=== PATIENT | male | born 1970 | race Caucasian/White ===

== ENCOUNTER → 2024-01-15 13:01 | Outpatient (REF) | payer BC, SELFPAY | LOC: RAD 13:01 | PROVIDERS: ATTENDING PHYSICIAN Nurse Practitioner Adult Health | DX: M25.562 Pain in left knee (principal) | CPT/HCPCS: 73564 ==

== ENCOUNTER 2025-01-24 21:30 | Inpatient (IN) | payer OTHER, SELFPAY ==
[2025-01-24] VITALS (45 sets, daily range): BP systolic 76–145; BP diastolic 52–106; BMI 25.8
[2025-01-24] MEDS: NARCAN 0.8 MG IV (18:49)
--- NOTE | 2025-01-24 18:49 | PTCARENOTE ---
Narcan 0.8mg IV given. Pt remains unresponsive. Will continue to monitor.
[2025-01-24] MEDS: AMIDATE 20 MG IV ×2 (18:52→21:25)
[2025-01-24] MEDS: ROCURONIUM 60 MG IV (18:52)
--- NOTE | 2025-01-24 18:52 | PTCARENOTE ---
Pt intubed by Giovani. Respiratory and several RN's bedside. Will continue to monitor.
--- NOTE | 2025-01-24 19:00 | PTCARENOTE ---
Tick found on chest hair in CT Scan. Tick was not embedded. made aware. Tick discarded of. Will continue to monitor.
[2025-01-24 19:05] LABS: % Basophils 0.4 % (0-2); % Eosinophils 3.1 % (0-6); % Immature Granulocytes 0.2 % (0-0.5); % Lymphocytes 34.5 % (20.5-51.1); % Monocytes 6.7 % (1.7-9.3); % Neutrophils 55.1 % (42.2-75.2); Absolute Eosinophils 0.2 10^3/uL (0-0.7); Absolute Lymphocytes 1.9 10^3/uL (1.2-3.4); Absolute Monocytes 0.4 10^3/uL (0.1-0.6); Absolute Neutrophils 3.1 10^3/uL (1.4-6.5); Hematocrit 39.5 % (39.0-52.0); Hemoglobin 13.4 g/dL (13.0-18.0); Mean Corp Hgb Conc. 33.9 g/dL (33.0-37.0); Mean Corpuscular Hgb 32.4 pg (27.0-31.0); Mean Corpuscular Volume 95.6 fL (80.0-94.0); Mean Platelet Volume 10.3 fL (7.4-10.4); Nucleated Red Blood Cells % 0 % (-); Platelet Count 172 10^3/uL (130-400); Red Blood Cell Count 4.13 10^6/uL (4.70-6.10); Red Cell Dist. Width 11.5 % (11.5-14.5); White Blood Cell Count 5.5 10^3/uL (4.8-10.8)
[2025-01-24 19:18] LABS: Lactic Acid 1.8 mmol/L (0.7-2.0)
[2025-01-24 19:19] LABS: ALT (SGPT) 109 U/L (0-50); AST (SGOT) 170 U/L (17-59); Acetaminophen < 10 ug/ml (10-30); Albumin 3.9 g/dl (3.5-5.0); Alcohol 188 mg/dl; Alkaline Phosphatase 52 U/L (38-126); Blood Urea Nitrogen 10 mg/dl (9-20); Calcium 8.9 mg/dl (8.4-10.2); Carbon Dioxide 30 mmol/L (22-30); Chloride 101 mmol/L (98-107); Glucose 106 mg/dl (70-99); Potassium 4.5 mmol/L (3.5-5.1); Salicylate < 1.0 mg/dl (2.0-20.0); Sodium 139 mmol/L (135-145); Total Bilirubin 0.4 mg/dl (0.2-1.3); Total Protein 6.4 g/dl (6.3-8.2); eGFR > 60.00
[2025-01-24 19:29] LABS: Troponin I < 0.012 ng/ml
--- NOTE | 2025-01-24 19:40 | ED.GENMED ---
History of Present Illness
General
Chief Complaint: Unresponsive
Source: family (Mother) and ambulance crew
Time Seen by Provider: 01/24/25 18:43
History of Present Illness
History of Present Illness:
54-year-old male found unresponsive in the bathroom. Was seen about an hour earlier at 530 and was fine. 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 Mom did note he seemed somewhat unusually sleepy yesterday but did go to work. No known overdose at home.
Patient is on buprenorphine 1/2 tablet 3 times a day. Last filled January 03. Other medications were not gone. No medications in the bathroom.
Past History
Past History
ED Past Medical History: Other (History of opioid use)
Social History
Living: with family
Review of Systems
Review of Systems
Unable to obtain full review of systems at this time due to: due to acuity
All Other Systems: Not applicable
Phy Exam
Physical Exam
Physical Exam:
GENERAL: Unresponsive. Collar in place. Superficial abrasion to the anterior neck consistent with shaving
EYE: Pinpoint pupils bilaterally
NECK: Collar in place
ENT: Pharynx without erythema
CARDIAC: Regular rate and rhythm without any obvious murmurs.
LUNGS: Shallow breathing. No gag reflex
ABDOMEN: Soft, without focal tenderness or distention
NEUROLOGICAL: Totally unresponsive. No withdrawal to pain.
SKIN: Warm and dry, no rash or lesion, no discoloration, skin intact.
MUSCULOSKELETAL: No edema,no deformity.Good color
Course
Orders/Labs/Results
Orders:
Orders
01/24/25 Dinner
NPO
Allow oral meds: No
Allow clear liquids: No
01/24/25 18:38
Electrocardiogram (*1) Urgent
Reason for Study: Chest Pain
01/24/25 18:39
EKG- Treatment ONCE
01/24/25 18:41
Propofol 1,000,000 Mcg/100 ml [Diprivan] 1,000,000 mcg in 100 ml .ROUTE .STK-MED
01/24/25 18:43
Cardiac Monitoring- Treatment ONCE
Acetaminophen Urgent
Alcohol Urgent
Complete Blood Count/With Diff Urgent
Comprehensive Metabolic Panel Urgent
Lactic Acid Urgent
Salicylate Urgent
Troponin I Urgent
CXR Port [CR Chest Portable - 1 View] Urgent
Comment:
Reason For Exam: intubated
Reason Study Needs to be Portable: Patient Unstable
01/24/25 18:44
CT Cervical Spine W/o Iv Contr Urgent
Comment:
Reason For Exam: unresp
CT Head W/o Iv Contrast Urgent
Comment:
Reason For Exam: unresp
01/24/25 18:45
Naloxone [Narcan] 0.8 mg .ROUTE .STK-MED ONE
01/24/25 18:49
Naloxone [Narcan] 0.8 mg IV NOW STA
01/24/25 18:52
Etomidate [Amidate] 20 mg IV NOW STA
01/24/25 18:55
Rocuronium Altair [Rocuronium] 60 mg IV NOW STA
01/24/25 19:11
CT Head & Neck Angio W/wo IV Urgent
Comment:
Reason For Exam: Unresponsive
01/24/25 19:41
ABG [Arterial Blood Gas] Urgent
%Oxygen/Room Air: 50%
01/24/25 19:42
Fentanyl, Urine Urgent
Urinalysis Reflex To Culture Urgent
Date Specimen was Collected: 01/24/25
Time Specimen was Collected: 19:40
Urine Drug Abuse Screen Urgent
Date Specimen was Collected: 01/24/25
Time Specimen was Collected: 19:40
Urine Microscopic Reflex Cult Urgent
Urine Culture Urgent
SIMI Source: U
Specimen Description:
Date Specimen was Collected: 01/24/25
Time Specimen was Collected: 19:40
01/24/25 19:44
Straight cath- Treatment ONCE
Straight cath- Treatment ONCE
01/24/25 20:05
Triglycerides Routine
Comment: baseline levels with propofol infusion
Propofol 1,000,000 Mcg/100 ml [Diprivan] 1,000,000 mcg in 100 ml IV NOW
Indication:: Light Sedation
Begin Infusion:: Now
Goal:: RASS 0 to -2
Maximum dose in mcg/kg/min:: 50
Initial dose based on RASS:: Yes
If RASS is:: +1 or pt hemodynamically unstable (SBP < 90mmHg), initiate at 10 mcg/kg/min
If RASS is:: +2, initiate at 20 mcg/kg/min
If RASS is:: greater than or equal to +3, initiate at 30 mcg/kg/min
Titration Instructions:: Titrate by 5-10 mcg/kg/min every 5 minutes until RASS 0 to -2 achieved.
Taper Instructions:: If RASS is at or below goal for 4 consecutive hours decrease infusion by
Taper Instructions:: 5-10 mcg/kg/min every 2 hours to off.
Over-sedation Instructions:: If CPOT 0-2 (at goal) AND RASS -3 to -5 (below goal) decrease sedative by
Over-sedation Instructions:: 50% first. If pain score remains at goal and RASS remains below goal in
Over-sedation Instructions:: 1 hour, decrease opioid infusion by 50%.
Notify provider:: immediately if patient exhibits signs/symptoms of propofol-related
Notify provider:: infusion syndrome.
Additional Instructions:: Patient MUST be mechanically ventilated and MUST receive analgesia.
01/24/25 20:24
Admit/Transfer Patient As Directed
Co-Sign Provider:
Level of Care: Inpatient admission
Assign to:: ICU
Physician / Group: latonya
Diagnosis: drug overdose
Reason for Hospitalization: drug overdose
Expected length of stay greater than two midnights?: Yes
ELOS- Estimated Length of Stay in days: 2
I certify the patient meets the requirements for IP care: Yes
PRN Pain Medication Management As Directed
May give lesser potent ordered pain med per pt: Yes
preference::
Protocol:: Medication orders for pain may be administered in a
manner that supports deferring to patient preference
when the pt is:
- Requesting an ordered lesser potent pain medication.
Least to most potent pain medications are defined
as: acetaminophen < NSAID < tramadol < opioids
(morphine, oxycodone, hydromorphone).
- Requesting a lesser dose of the same medication IF
ORDERED.
- Requesting a less intrusive route of administration
if both routes are prescribed by the provider (PO <
IV).
01/24/25 20:25
Code Status As Directed
Resuscitation Status: Full Code
01/24/25 20:30
NEUROLOGY CONSULT Routine
Consulting Provider: Rah Burgess
Was physician already notified: Yes
01/24/25 20:42
NORepinephrine 4 MG/250 ML [Levophed] 4 mg in 250 ml .ROUTE .STK-MED
01/24/25 20:53
Lorazepam [Ativan] 2 mg .ROUTE .STK-MED ONE
01/24/25 20:58
Lorazepam [Ativan] 2 mg IV NOW STA
01/24/25 20:59
CXR Port [CR Chest Portable - 1 View] Urgent
Comment:
Reason For Exam: Patient pulled tube
Reason Study Needs to be Portable: Unable to Transport
01/24/25 21:00
Propofol [Diprivan] 40 mg IV NOW STA
01/24/25 21:11
NORepinephrine 4 MG/250 ML [Levophed] 4 mg in 250 ml IV NOW
Initial dose in mcg/min, then titrate:: 2
Titrate to keep:: MAP > 65 mmHg
Titrate by mcg/min:: 1-2 mcg/min
Frequency of titrations (minutes):: 5
Maximum dose in ICU in mcg/min:: 30
Maximum dose in IMU in mcg/min:: 8
Maximum dose in IVU in mcg/min:: 4
Begin to taper infusion when:: Remained at goal for 4hrs
Taper by mcg/min:: 1-2 mcg/min
Frequency of taper (minutes) if patient maintains goal:: 30
Taper to off?: Yes
If infusion off & no longer maintaining goal:: Contact Provider
01/24/25 21:28
CXR Port [CR Chest Portable - 1 View] Stat
Comment:
Reason For Exam: Intubated
Reason Study Needs to be Portable: Patient Unstable
01/24/25 21:58
Oracle Database Consultant Consult Routine
Consulting Provider: Ric Ovalle
Was physician already notified: Yes
Lyme Progressive Routine
Activity As Directed
Activity Level: As Tolerated
Vital Signs As Directed
Frequency: Per unit guidelines
DX Deep Vein Thrombosis Video Routine
01/25/25 06:00
Complete Blood Count/With Diff IN AM
Comprehensive Metabolic Panel IN AM
01/25/25 08:00
Heparin 5,000 units SC Q12
Abnormal Lab Results
01/24/25 01/24/25 01/24/25
18:43 19:41 19:42
RBC 4.13 L 10^6/uL
(4.70-6.10)
MCV 95.6 H fL
(80.0-94.0)
MCH 32.4 H pg
(27.0-31.0)
pO2 143 H mmHg
(83-108)
ABG O2 Sat (Measured) 99.3 H %
(94-98)
Glucose 106 H mg/dl
(70-99)
AST 170 H U/L
(17-59)
ALT 109 H U/L
(0-50)
Leukocyte Esterase Rfl 1+ A
(Negative)
Salicylates < 1.0 L mg/dl
(2.0-20.0)
Ur Buprenorphine Positive H
(Negative)
Urine Fentanyl Screen Positive H
(Negative)
Acetaminophen < 10 L ug/ml
(10-30)
Ur Amphetamines Screen Positive H
(Negative)
U Benzodiazepines Scrn Positive H
(Negative)
Urine Cocaine Screen Positive H
(Negative)
U Marijuana (THC) Screen Positive H
(Negative)
01/24/25 18:43
01/24/25 18:43
Vital Signs
Initial and Last Documented VS:
Initial Vital Signs
Temp Pulse Resp BP Pulse Ox
98.1 F 75 21 103/69 100
01/24/25 18:40 01/24/25 18:40 01/24/25 18:40 01/24/25 18:40 01/24/25 18:40
Last Documented Vital Signs
Temp Pulse Resp BP Pulse Ox
98.1 F 65 14 106/80 100
01/24/25 18:40 01/24/25 19:50 01/24/25 19:50 01/24/25 19:50 01/24/25 19:50
Procedures
Intubations
Procedure completed by: Myself
Method of Intubation: glidescope
Tube size (cm): 8.0
Placement confirmed by: auscutation, CXR, capnography and direct visualization
Breath sounds after intubation: equal
Intubation complications: no complications
*Radiology
Radiology exam reviewed: preliminary read by ED provider (Chest x-ray with good placement) and radiology read reviewed (CT scans negative. Chest x-ray with good placement)
*Critical Care Note
Total Time (30-74mins, 75-104mins- exclusive of procedures): 70
Update Note
Update Note:
Patient is followed and rechecked multiple times. Multiple discussions with family. CT scans unremarkable. This points most likely to a opioid issue... However no obvious overdose in the bathroom and likely no obvious missing pills and less not
been taking the medication. Discussed with neurology. No further radiologic imaging at this time. Referred to hospitalist.
Also consider organophosphate poisoning however patient has no bronchospasm or bronchorrhea no defecation diaphoresis no vomiting no unusual lacrimation or salivation.
2129.... Patient apparently had woken suddenly and pulled his ET tube. He was rechecked afterwards and initially felt to be stable after increased sedation. However I noted that he was running slightly lower pulse oxes in the low 90s. And he had
some high pressures on the machine. We elected to check an end-tidal CO2 which did not register. I then visually looked and the ET tube had been displaced outside of his cords. Initially we observed to see how well he was breathing on his own and
whether he could stay extubated. He made some shallow effort but did not make significant effort. Therefore I felt he needed to be reintubated. He was reintubated without difficulty with an 8 oh tube. Confirmed with end-tidal CO2 and breath
sounds. Also will be confirmed with chest x-ray. Patient is pending ICU placement.
X-ray rechecked. Will be pulled back 1.5 cm. Good pulse ox is stable vital signs ongoing to the ICU.
ED Attending Note
-
Portions of this chart may have been created with voice recognition software.� Occasional wrong word or��sound alike� substitutions may have occurred due to the inherent limitations of voice recognition software.
Discharge Plan
Departure
Patient Disposition: Admit
Date of Disposition: 01/24/25
Time of Disposition: 19:40
Presentation/result/management discussed w/ accepting MD/DO: Hospitalist
Discharge Problem:
Unresponsive
Interventions
Interventions:
*Risk Screen - Suicide Last Done: 01/24/25 18:43
*General Assessment Last Done: 01/24/25 19:45
*Neglect/Abuse Screening Last Done: 01/24/25 18:43
*ED- Fall Risk Assessment Last Done: 01/24/25 19:43
*ED COVID-19 Vaccine History Last Done: 01/24/25 19:43
ED- Neurological Assessment Last Done: 01/24/25 18:43
--- NOTE | 2025-01-24 19:53 | PTCARENOTE ---
Giovani and Hospitalist bedside speaking with pt's Mother. Respiratory bedside obtaining ABG. Pt remains unresponsive and intubated. VSS. Will continue to monitor.
[2025-01-24 19:59] LABS: Urine Albumin Negative (Neg - Trace); Urine Bilirubin Negative (Negative); Urine Character Clear (Clear); Urine Color Yellow; Urine Glucose Negative (Negative); Urine Ketone Negative (Negative); Urine Leukocyte 1+ (Negative); Urine Nitrite Negative (Negative); Urine Occult Blood Negative (Negative); Urine Specific Gravity 1.015 (<1.030); Urine Urobilinogen Negative (Neg - 1+)
[2025-01-24 20:07] LABS: Amphetamines Positive (Negative); Barbiturates Negative (Negative); Benzodiazepines Positive (Negative); Buprenorphine Positive (Negative); Cocaine Positive (Negative)
[2025-01-24 20:08] LABS: B.E. -2.4 mmol/L; HCO3 23.2 mmol/L (21-28); O2 Saturation % 99.3 % (94-98); PCO2 42 mmHg (35-48); PO2 143 mmHg (83-108); pH 7.35 (7.35-7.45)
[2025-01-24 20:08] LABS: Methadone Negative (Negative); Methamphetamines Negative (Negative); Opiates Negative (Negative); Phencyclidine Negative (Negative)
[2025-01-24 20:09] LABS: Marijuana Positive (Negative); Tricyclic Antidepressants Negative (Negative)
[2025-01-24] MEDS: DIPRIVAN 100 IV (20:12)
[2025-01-24 20:18] LABS: Urine Red Blood Cell None Seen /HPF (0-2); Urine Squamous Cell 0-2 /LPF (Few)
--- NOTE | 2025-01-24 20:28 | HPS.HSE ---
Addendum entered and electronically signed by Macie Meyer MD 01/24/25 20:35:
Transaminitis secondary to Alcohol/drugs
-continue to monitor
Original Note:
Family Physician
-
Family Physician:
Chief Complaint
-
unresponsiveness
History of Present Illness
54-year-old male past medical history of hypertension, anxiety/depression, prior opiate use disorder on Subutex, on chronic Valium, presenting with unresponsiveness today.
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 History is obtained from her. She states that he was very lethargic and sleepy all day yesterday. He did not complain of any symptoms. Today he went to work as usual and came home around 5
PM. Mother was away for 15 minutes and patient went to the shower. She called to him and he was on the bathroom floor. He was breathing shallowly. EMS was called.
Patient is on buprenorphine half tablet 3 times a day which was last filled on January 03. He is also on Valium and Lexapro. There were no missing medications. Mother was not aware that patient would be drinking alcohol. He does not use any other
drugs.
Patient was found to have a unattached tic on his chest without any rash.
Medical History
Past Medical History
Past Medical History: Reports Other (hypertension, anxiety/depression, prior opiate use disorder on Subutex)
Past Surgical History: Reports None
Social History
Tobacco: Non-smoker
Alcohol: None
Drug: None
Family History
Family History: Not pertinent
Allergies / Home Medications
Allergies reflects when Allergies were last updated in [facility].
Home Medications with original date entered in [facility]
Allergy/Medication List:
Allergies
Allergy/AdvReac Type Severity Reaction Status Date / Time
bee venom protein (honey bee) Allergy Hives Verified 01/24/25 20:14
Review of Systems
-
History Source: Patient
A 12 point ROS was completed and negative except as noted: Yes
Constitutional: Reports No Symptoms
EENT: Reports No Symptoms
Respiratory: Reports No Symptoms
Cardiac: Reports No Symptoms
Abdomen/GI: Reports No Symptoms
: Reports No Symptoms
Musculoskeletal: Reports No Symptoms
Skin: Reports No Symptoms
Neurological: Reports No Symptoms
Endocrine: Reports No Symptoms
Hematologic/Lymphatic: Reports No Symptoms
Psych: Reports No Symptoms
Physical Exam
Vital Signs
Vital Signs
Temp Pulse Resp BP Pulse Ox
98.1 F 65 14 106/80 100
01/24/25 18:40 01/24/25 19:50 01/24/25 19:50 01/24/25 19:50 01/24/25 19:50
Physical Exam
General: Well Developed, Well Nourished and No Apparent Distress
HEENT: NormoCephalic, Moist mucous membranes and Atraumatic
Respiratory: Clear
Cardiac: S1/S2 and Regular Rhythm; No Murmur or Rub
GI: Soft, Non Tender, Non Distended and Normal Bowel Sounds; No Organomegaly
Rectal: Deferred by Provider
Musculoskeletal: No Clubbing, No Cyanosis and No Edema
Skin: No Rash
Neuro: Nonfocal/grossly intact
Laboratory Results
-
01/24/25 18:43
01/24/25 18:43
Laboratory Results
pH 7.35 (7.35-7.45) 01/24/25 19:41
pCO2 42 mmHg (35-48) 01/24/25 19:41
pO2 143 mmHg (83-108) H 01/24/25 19:41
HCO3 23.2 mmol/L (21-28) 01/24/25 19:41
Lactic Acid 1.8 mmol/L (0.7-2.0) 01/24/25 18:43
Total Bilirubin 0.4 mg/dl (0.2-1.3) 01/24/25 18:43
AST 170 U/L (17-59) H 01/24/25 18:43
ALT 109 U/L (0-50) H 01/24/25 18:43
Alkaline Phosphatase 52 U/L (38-126) 01/24/25 18:43
Troponin I < 0.012 ng/ml 01/24/25 18:43
Data Reviewed
-
Lab Data: Labs Reviewed by me
Old Records: Reviewed
Impression/Plan
-
IMPRESSION:
PLAN:
# Unresponsiveness likely anoxic brain injury from Subutex overdose with concurrent alcohol/benzodiazepine/marijuana/amphetamine/cocaine use
-Patient not hypoxemic
-Alcohol level of 188
-UDS positive for amphetamines, cocaine and marijuana in addition to expected buprenorphine and benzodiazepines
-Tylenol and salicylate level negative
-UDS negative
-CTA head and neck unremarkable
-Patient intubated in ER
-On propofol drip
-Supportive care
- Neurology consulted for prognostication
- Unlikely to be brainstem CVA
# Unattached tick on the body
- No rash
- Mother requesting Lyme testing
Essential hypertension
Anxiety/depression
- Patient normally on Lexapro, Valium
Full code
DVT prophylaxis�heparin
N.p.o.
[2025-01-24 20:31] LABS: Fentanyl, Urine Positive (Negative)
[2025-01-24] MEDS: DIPRIVAN 40 MG IV (20:40)
--- NOTE | 2025-01-24 20:51 | W.PN.UPDATE ---
Addendum entered and electronically signed by Macie Meyer MD 01/24/25 21:32:
Patient became hypoxic to 90% and end Tidal Co2 not registering suggested that he pulled out tube so he was reintubated.
Original Note:
Update Note
Progress Note Update
Patient became awake and tried getting out of the bed. Propofol bolus and drip increased. IV fluids and Levophed being givendue to hypotension from increased Propofol.
[2025-01-24] MEDS: ATIVAN 2 MG IV (20:59)
[2025-01-24] MEDS: LEVOPHED 250 IV (21:17)
--- NOTE | 2025-01-24 21:50 | PTCARENOTE ---
Bed side CXR done to check placement of ET tube after pt attempted to extubate himself. Tube showed to be misplaced. Pt reintubated at bedside w/ Giovani, Respiratory and 2 RN's. Etomidate 20mg IV and Rocuronium 60mg IV given through Right AC.
Post CXR shows correct placement of ET tube. ICU updated and pt sent to floor with 2 RN's and 1 Respiratory Therapist. Will continue to monitor.
[2025-01-24 22:24] LABS: Glucose - Point of Care 94 mg/dl (70-99)
[2025-01-24] MEDS: NSS 1000 IV ×2 (23:05→23:14)
[2025-01-24] MEDS: SUBLIMAZE 100 MCG IV (23:14)
[2025-01-24] MEDS: SUBLIMAZE 100 IV (23:15)
[2025-01-25] VITALS (46 sets, daily range): BP systolic 80–145; BP diastolic 50–92; PULSE 49; BMI 26.0
--- NOTE | 2025-01-25 | PTCARENOTE ---
Pt arrived to ICU room 3369 from ER at 2154. Pt intubated, #8.0 ETT 26cm at lip, vent settings: AC 14/450/50/5. Received pt on Propofol at 35mcg/kg/min and Levophed at 2mcg/min. Pt initially unresponsive to any stimuli, RASS -5, sinus miguelito on
monitor with HR in 40s, going down as low as 38, but mainly staying in 50s-60s. CHG cloth bath done upon arrival. IVF bolus ordered/administered followed by continuous fluids. Fentanyl drip initiated, at which point Propofol titrated down. See med
titration flowsheets for all details on all med rates/titrations. Physical assessment as documented in nursing shift assessment flowsheet. Unable to complete most of admission database as pt is unable to answer any questions.
[2025-01-25] MEDS: SUBLIMAZE 50 MCG IV ×8 (00:16→13:40)
[2025-01-25 00:31] LABS: Triglycerides 140 mg/dl (10-149)
[2025-01-25] MEDS: DIPRIVAN 100 IV ×5 (00:42→16:08)
[2025-01-25] MEDS: ATIVAN 2 MG IV ×2 (01:41→05:49)
[2025-01-25 04:21] LABS: % Basophils 0.3 % (0-2); % Eosinophils 1.9 % (0-6); % Immature Granulocytes 0.3 % (0-0.5); % Lymphocytes 26.1 % (20.5-51.1); % Monocytes 8.1 % (1.7-9.3); % Neutrophils 63.3 % (42.2-75.2); Absolute Eosinophils 0.1 10^3/uL (0-0.7); Absolute Monocytes 0.6 10^3/uL (0.1-0.6); Absolute Neutrophils 4.8 10^3/uL (1.4-6.5); Hemoglobin 11.6 g/dL (13.0-18.0); Mean Corp Hgb Conc. 33.1 g/dL (33.0-37.0); Mean Corpuscular Volume 96.7 fL (80.0-94.0); Mean Platelet Volume 10.3 fL (7.4-10.4); Nucleated Red Blood Cells % 0 % (-); Platelet Count 151 10^3/uL (130-400); Red Blood Cell Count 3.62 10^6/uL (4.70-6.10); Red Cell Dist. Width 11.8 % (11.5-14.5); White Blood Cell Count 7.5 10^3/uL (4.8-10.8)
[2025-01-25 04:32] LABS: INR 0.99; PT 13.4 Sec (11.4-14.6)
[2025-01-25 04:33] LABS: APTT 26.7 Sec (23.4-35.0)
[2025-01-25 04:42] LABS: ALT (SGPT) 85 U/L (0-50); AST (SGOT) 105 U/L (17-59); Albumin 3.1 g/dl (3.5-5.0); Alkaline Phosphatase 46 U/L (38-126); Blood Urea Nitrogen 10 mg/dl (9-20); Calcium 7.9 mg/dl (8.4-10.2); Carbon Dioxide 24 mmol/L (22-30); Chloride 110 mmol/L (98-107); Direct Bilirubin 0.2 mg/dl (0.0-0.4); Estimated Creatinine Clearance 123 ml/min; Glucose 84 mg/dl (70-99); Magnesium 1.7 mg/dl (1.6-2.3); Phosphorus 3.7 mg/dl (2.5-4.5); Potassium 4.3 mmol/L (3.5-5.1); Sodium 140 mmol/L (135-145); Total Bilirubin 0.3 mg/dl (0.2-1.3); Total Protein 5.2 g/dl (6.3-8.2); eGFR > 60.00
--- NOTE | 2025-01-25 04:43 | PTCARENOTE ---
Addendum entered by Teri Fierro RN 01/25/25 04:48:
Assessment otherwise unchanged.
Original Note:
Pt now awakens easily, becomes easily agitated, attempting to sit up, pulling at restraints in an attempt to reach tube. Pt able to nod/shake head appropriately, able to follow simple commands. Can occasionally be redirected and calmed down but not
always. Pt has required increased sedation doses, now on Propofol at 50mcg/kg/min and Fentanyl at 150mcg/hr, has required multiple Fentanyl bolus doses as well as PRN Ativan, see EMAR for details on med administration. By 0400 pt had not urinated,
bladder scan done and showed 567mL, straight cathed for 550mL. Pt remains on Levophed, now at 1mcg/min--pt's BP will go up to 130s with MAPs in 90s-100s on 2mcg/min but when turned off pt does not maintain MAP goal. Currently SB in high 50s on
monitor, SpO2 100% on same vent settings. AM labs drawn/pending.
[2025-01-25] MEDS: SUBLIMAZE 100 IV ×4 (07:27→22:36)
[2025-01-25] MEDS: HEPARIN 5000 UNITS SC ×2 (07:50→16:09)
[2025-01-25] MEDS: NSS 1000 IV ×3 (07:54→23:25)
--- NOTE | 2025-01-25 08:19 | CON.INTV ---
Consultation
Consultation Request
Date/Time Consultation Requested: 01/24/20252157
Date/Time Consultation Performed: 01/25/2025815
Requesting Provider: Betsy Calvillo
Performing Provider: Dr. Ovalle
Reason for Consultation: Drug overdose
Medical History
-
Chief Complaint: Found unresponsive
History of Present Illness:
54-year-old male tobacco smoker with a past medical history of opioid use disorder, anxiety, hypertension, C5/6 disc herniation and cervical spine DDD presented from home due to unresponsiveness. Patient last known normal at 5:30 PM on 01/24/2025.
Patient found on the bathroom floor unresponsive. 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 Angel May). The patient went to work and came home around 5 PM. The
mother was away for 15 minutes and patient went to the shower. She then found him on the bathroom floor after he did not respond to her. He was breathing shallowly. EMS called. Patient is prescribed Subutex half a tablet 3 times a day, last
filled on January 03. Also on Valium and Lexapro. There were no other missing medications. Mother was unaware that he had been drinking alcohol. He also was found with an unattached tick on his chest without a rash. Unclear if the tick was
engorged or not. In the ER he was afebrile to 98.1 �F, pulse rate 75, respiratory rate 21, BP 130/69 and saturating 100% on nonrebreather. Patient being intubated due to continued unresponsiveness. After patient intubated, he was later found to
be hypoxic with end-tidal CO2 not registering and he had to be reintubated. Pertinent labs show AST 170, ALT 109, negative troponin x 1, urinalysis with +1 leukocyte esterase, and UDS positive for fentanyl, buprenorphine, cocaine, benzodiazepines
and marijuana. Patient's alcohol level was 188. Urine culture was sent. CXR showed no evidence of pneumonia or vascular congestion, and CT head + cervical spine showed no acute intracranial abnormality, and no evidence of cervical spine fracture.
CTA head/neck showed widely patent bilateral carotid arterial system with no LVO or dissection bilaterally. Patient was started on propofol and Levophed and transferred to the ICU for further care. State Tested Nursing Assistant services consulted for additional
management/recommendations.
When I saw the patient's morning, he was intubated on AC/CMV at 14/450/5/50% with PIP 15 cm water, VT 440 and breathing at 14 breaths/min. End-tidal CO2: 31, heart rate 61, SpO2 98%. BP 107/65. Patient's mother, Jamilah, present at bedside and all
questions were answered. Patient currently sedated on fentanyl drip at 225 mcg/hr, propofol at 50 mcg/kg/min and Precedex 0.4 mcg/kg/hour.
PMHx: Anxiety, lower back pain, hypertension, opioid use disorder now on Subutex, C5/6 disc herniation, DDD and facet arthrosis of C-spine, chronic Valium, hypertension
PSHx: Noncontributory
Past Medical History
Past Medical History: Other (Above as per HPI)
Past Surgical History: Other (Above as per HPI)
Social History
Tobacco: Smoker
Alcohol: Occasional
Drug: None
Family History
Family History: CAD (Father), Cancer (Father (unknown type)), Hypertension (Father) and Other (Follow up: Aortic valve replacement)
Allergies / Home Medications
Allergies
Allergy/AdvReac Type Severity Reaction Status Date / Time
bee venom protein (honey bee) Allergy Hives Verified 01/24/25 20:14
Review of Systems
-
Unable to Obtain full review of systems at this time due to: Patient Intubation
Vitals / Labs / Diagnostic Testing
Vital Signs
Temp Pulse Resp BP Pulse Ox
98.5 F 65 19 97/79 100
01/25/25 07:00 01/25/25 07:30 01/25/25 07:30 01/25/25 07:30 01/25/25 08:00
Lab Data
01/25/25 03:55
01/25/25 03:55
Laboratory Results
01/24/25 01/25/25
19:41 03:55
PT 13.4
INR 0.99
APTT 26.7
pH 7.35
pCO2 42
pO2 143 H
HCO3 23.2
O2 Delivery Level
Diagnostic Testing:
Physical Exam
-
HEENT: Normocephalic, Anicteric, Other (C-collar in place) and Other (ETT in place)
Cardiovascular: S1/S2 and Peripheral Edema (negative)
Respiratory: Wheeze (negative), Rales (negative), Rhonchi (negative), Non-Labored Respirations and Other (Mechanical breath sounds heard bilaterally)
GI: Soft, Non Distended, Non Tender and Normal Bowel Sounds
Neurology: Tremors (negative) and Other (Sedated; pupils +2 bilaterally and sluggish)
Skin: Warm and Dry
General: Respiratory Distress (negative), Comfortable, Fever (negative), Chills (negative) and Sweats (negative)
Assessment
-
Assessment: 54-year-old male tobacco smoker with a past medical history of opioid use disorder, anxiety, hypertension, C5/6 disc herniation and cervical spine DDD presented from home due to unresponsiveness. Patient last known normal at 5:30 PM on
01/24/2025. Patient found on the bathroom floor unresponsive. 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 Angel May). The patient went to work and came home around
5 PM. The mother was away for 15 minutes and patient went to the shower. She then found him on the bathroom floor after he did not respond to her. He was breathing shallowly. EMS called. Patient is prescribed Subutex half a tablet 3 times a
day, last filled on January 03. Also on Valium and Lexapro. There were no other missing medications. Mother was unaware that he had been drinking alcohol. He also was found with an unattached tick on his chest without a rash. Unclear if the tick
was engorged or not. In the ER he was afebrile to 98.1 �F, pulse rate 75, respiratory rate 21, BP 130/69 and saturating 100% on nonrebreather. Patient being intubated due to continued unresponsiveness. After patient intubated, he was later found
to be hypoxic with end-tidal CO2 not registering and he had to be reintubated. Pertinent labs show AST 170, ALT 109, negative troponin x 1, urinalysis with +1 leukocyte esterase, and UDS positive for fentanyl, buprenorphine, cocaine,
benzodiazepines and marijuana. Patient's alcohol level was 188. Urine culture was sent. CXR showed no evidence of pneumonia or vascular congestion, and CT head + cervical spine showed no acute intracranial abnormality, and no evidence of cervical
spine fracture. CTA head/neck showed widely patent bilateral carotid arterial system with no LVO or dissection bilaterally. Patient was started on propofol and Levophed and transferred to the ICU for further care. State Tested Nursing Assistant services consulted
for additional management/recommendations.
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
Impression:
#Acute respiratory failure with hypoxia now on mechanical ventilation (intubated 02/20/2025)
#Polysubstance abuse with drug overdose of fentanyl
#Acute anemia (mild)
#Alcohol intoxication
#History of hypertension
#History of anxiety
#History of C5/6 disc herniation
#Tobacco use disorder
Plan:
- Patient was found unresponsive by patient's mother, and UDS positive for fentanyl, cocaine, THC and benzodiazepines. He is prescribed Valium, Subutex and Lexapro
- No other of his home medications were missing
- He is currently intubated due to unresponsiveness with need for airway protection
- Continue mechanical ventilation with daily SAT/SBT if clinically appropriate
- Titrate FiO2 + PEEP to maintain SpO2 >90-94%
- Frequent oropharyngeal + deep ETT suctioning as needed
- Aspiration precautions
- prn nebulized bronchodilators - not currently bronchospastic
- He had used fentanyl with unclear duration of this use, and given the adulterants of xylazine + medetomidine, he is currently sedated with fentanyl drip, propofol and Precedex
- Continue to wean down sedation as tolerated
- May need ketamine to help wean off sedation
- Given that his alcohol level was elevated, he is at risk of a withdrawal seizure
- Start thiamine and folate for now
- Once he is extubated, would start MSAS at that time
- For now continue with propofol drip which should protect him from a seizure, continue with prn Ativan; may benefit from starting phenobarbital protocol
- Maintain MAP>65
- Weaned off vasopressors this morning; resume if needed to maintain MAP as above
- NS 0.9% @ 125cc/hr
- If patient spikes a fever then would start empiric antibiotics at that time given his risk for aspiration during his unresponsive event
- For now, monitor off antibiotics and trend WBC and monitor for fevers
- Nicotine patch if he is still smoking (unable to get a history at the moment)
- Replete electrolytes with K>4, Mg>2
- Maintain euglycemia with goal BG 140-180; check A1C
- Trend H/H and transfuse if needed to keep Hb>7g/dL; keep plt>20k, unless there is concern for bleeding then keep plt>50k
- DVT ppx: HSQ
Continue ICU level of care for this critically ill patient.
Critical care statement: A total of 37 minutes of critical care time was provided for this patient today. This includes management of unstable vital signs, evaluation of the patient at bedside, reviewing the patient's pertinent medical records
including radiographs, microbiology, laboratory evaluations, and discussion with primary team, consultants, pharmacy, nutrition, physical therapy, case management, charge nurse, critical care nursing, and respiratory therapy.
--- NOTE | 2025-01-25 08:45 | PTCARENOTE ---
Assumed care of pt at 0715 following shift report. Pt received intubated w/ #8 ETT to center to ordered vent settings. Fentanyl gtt infusing at 175mcg/hr, Propofol at 50 mcg/kg/min, Levophed at 1mcg/min and NSS at 125ml/hr. Bilateral soft wrist
restraints in use to protect lines/tubing. Pt restless/agitated - pulling on restraints, reaching for ETT, swinging legs. Pt intermittently following commands and attempting to communicate by mouthing words/gestures/head shake or nod. Bilateral
clinical transplant coordinator equal and strong. C-Collar remains in place. Fentanyl boluses given as documented in NOV. TT to Dr Ovalle updating him on pt's agitation. Telephone order to begin Precedex gtt received. Physical assessment completed as documented. Pt
turned/repositioned, comfort care and hygiene provided. Call tran w/in pt reach. Bed exit alarm in use and safe environment maintained.
[2025-01-25] MEDS: PRECEDEX 100 IV ×2 (09:03→17:36)
--- NOTE | 2025-01-25 09:09 | PTCARENOTE ---
Pt restlessly moving legs and pulling on restraints. Shakes head 'no' when asked if having any pain. Precedex gtt started per order.
--- NOTE | 2025-01-25 10:40 | RESPNOTE ---
ETT withdrawn 3 cms from 26 to 23 cms @ the lips as per the physician order. ETT is secured and another chest X-ray will be taken.
--- NOTE | 2025-01-25 11:30 | PTCARENOTE ---
Pt's mother at bedside. Updated on pt's present condition, plan of care. Questions answered and emotional support provided. Pt continues to rest quietly w/ intermittent restlessness/agitation. Precedex and Propofol gtts titrated as documented. Pt
straight cathed following bladder scan due to no urine output. Resp Therapy in room and at 1035 pulled back ETT 3cm per Dr Ovalle, repeat CXR obtained and results of ETT placement TT to Dr Ovalle w/o additional orders received.
--- NOTE | 2025-01-25 11:30 | W.PN.HOSP.TC ---
Today's Communication/Plan
-
continue ventilatory support
Assessment / Plan
Assessment / Plan
# Unresponsiveness likely anoxic brain injury from Subutex overdose with concurrent alcohol/benzodiazepine/marijuana/amphetamine/cocaine use
-Patient not hypoxemic
-Alcohol level of 188
-UDS positive for amphetamines, cocaine and marijuana in addition to expected buprenorphine and benzodiazepines
-Tylenol and salicylate level negative
-UDS negative
-CTA head and neck unremarkable
-Patient intubated in ER
-On propofol drip
-Supportive care
- Neurology consulted declined, as does not believe this is a brainstem CVA
# Unattached tick on the body
- No rash
- Mother requesting Lyme testing
Essential hypertension
Anxiety/depression
- Patient normally on Lexapro, Valium
Full code
DVT prophylaxis�heparin
N.p.o.
Anticipated Discharge: > 48 hours
Subjective/Interval History
-
Date of Service: January 25, 2025
Intubated
Objective Data
-
Labs:
Laboratory Results
01/25/25
03:55
WBC 7.5
Hgb 11.6 L
Hct 35.0 L
Plt Count 151
PT 13.4
INR 0.99
APTT 26.7
Sodium 140
Potassium 4.3
Chloride 110 H
Carbon Dioxide 24
BUN 10
Creatinine 0.7
Glucose 84
Calcium 7.9 L
Total Bilirubin 0.3
AST 105 H
ALT 85 H
Alkaline Phosphatase 46
Vital Signs:
Vital Signs
Temp Pulse Resp BP Pulse Ox
98.5 F 65 19 97/79 99
01/25/25 07:00 01/25/25 07:30 01/25/25 07:30 01/25/25 07:30 01/25/25 11:13
I&O
01/24/25 01/25/25 01/26/25
06:59 06:59 06:59
Intake Total 1944.9 / 2114.9 342.5 / 342.5
Output Total 550 / 550
Balance 1394.9 / 1564.9 342.5 / 342.5
Review of Systems
-
Unable to obtain full review of systems at this time due to: Patient Intubation
History Source: Coordinated Provider
EENT: Reports No Symptoms Reported
Respiratory: Reports Other (intubated)
Cardiac: Reports No Symptoms
Abdomen/GI: Reports No Symptoms
Genitourinary: Reports No Symptoms
Physical Exam
-
General: Well Developed, Well Nourished and Intubated
HEENT: Normocephalic, Atraumatic and Moist Mucous Membranes
Respiratory: Wheezes (mid to end expiratory wheeze)
Cardiac: Regular Rhythm and S1/S2
GI: Soft, Nontender and Nondistended
Skin: Warm and Dry
Neuro: Negative Awake
[2025-01-25] MEDS: THIAMINE INJECTION 200 MG IV (16:08)
--- NOTE | 2025-01-25 16:30 | PTCARENOTE ---
Pt continues to rest quietly- opens eyes w/ tactile or any verbal stimuli and becomes restless, pulling on restraints. Pt calms w/ eyes closed when undisturbed. Tapering down Propofol. No urine output- bladder scanned as documented. Pt's mom gone
home earlier this afternoon. Pt turned/repositioned and comfort care provided q2hr or more frequently. Safe environment maintained.
[2025-01-25] MEDS: FOLVITE 50.2 MG IV (16:40)
--- NOTE | 2025-01-25 20:00 | PTCARENOTE ---
Received pt intubated and sedated on propofol, fentanyl and precedex gtts. Pt. awakens to voice, follows commands, cooperative for the most part. Occasionally gets anxious and pulls up on restraints but calms down with reorientation. C-collar in
place. SB on tele, HR 50s. BP 100-110s/60s-70s. + pulses. No edema. #8 ETT @ 23cm, moved to the right. Tolerating A/C 14/450/+5/40%. Spo2 100%. Lungs diminished at bases. Hypoactive bowel sounds. Required straight cath earlier in day - will monitor
bladder scans. Turning q2. Monitoring
[2025-01-26] VITALS (29 sets, daily range): BP systolic 108–159; BP diastolic 71–94; PULSE 46–68; BMI 27.1
--- NOTE | 2025-01-26 00:06 | PTCARENOTE ---
Weaned prop to 10mcg earlier in attempt to wean it off, precedex down to 0.5mcg (due to HR dipping to 49). Pt. suddenly became restless, trying to motion with his hands and talk over ETT. Encouragement given to pt but unable to redirect or calm
down. PRN fentanyl bolus given with good effect. Prop and precdex stayed at current dosages. Otherwise, assessment unchanged.
[2025-01-26] MEDS: DIPRIVAN 100 IV (00:34)
[2025-01-26] MEDS: HEPARIN 5000 UNITS SC ×4 (00:45→23:05)
[2025-01-26] MEDS: PRECEDEX 100 IV (02:13)
[2025-01-26] MEDS: SUBLIMAZE 100 IV (03:51)
[2025-01-26] MEDS: SUBLIMAZE 50 MCG IV (04:07)
[2025-01-26] MEDS: ATIVAN 2 MG IV (04:14)
[2025-01-26 04:45] LABS: % Basophils 0.2 % (0-2); % Eosinophils 2.7 % (0-6); % Immature Granulocytes 0.4 % (0-0.5); % Monocytes 11.5 % (1.7-9.3); % Neutrophils 61.2 % (42.2-75.2); Absolute Eosinophils 0.1 10^3/uL (0-0.7); Absolute Lymphocytes 1.2 10^3/uL (1.2-3.4); Absolute Monocytes 0.6 10^3/uL (0.1-0.6); Absolute Neutrophils 2.9 10^3/uL (1.4-6.5); Hematocrit 31.1 % (39.0-52.0); Hemoglobin 10.5 g/dL (13.0-18.0); Mean Corp Hgb Conc. 33.8 g/dL (33.0-37.0); Mean Corpuscular Hgb 32.6 pg (27.0-31.0); Mean Corpuscular Volume 96.6 fL (80.0-94.0); Mean Platelet Volume 10.8 fL (7.4-10.4); Nucleated Red Blood Cells % 0 % (-); Platelet Count 119 10^3/uL (130-400); Red Blood Cell Count 3.22 10^6/uL (4.70-6.10); Red Cell Dist. Width 11.6 % (11.5-14.5); White Blood Cell Count 4.8 10^3/uL (4.8-10.8)
[2025-01-26 05:05] LABS: ALT (SGPT) 56 U/L (0-50); AST (SGOT) 52 U/L (17-59); Albumin 2.7 g/dl (3.5-5.0); Alkaline Phosphatase 43 U/L (38-126); Blood Urea Nitrogen 9 mg/dl (9-20); Calcium 7.8 mg/dl (8.4-10.2); Carbon Dioxide 20 mmol/L (22-30); Chloride 111 mmol/L (98-107); Estimated Creatinine Clearance > 125 ml/min; Glucose 81 mg/dl (70-99); Magnesium 1.8 mg/dl (1.6-2.3); Phosphorus 2.8 mg/dl (2.5-4.5); Potassium 3.8 mmol/L (3.5-5.1); Sodium 137 mmol/L (135-145); Total Bilirubin 0.7 mg/dl (0.2-1.3); Total Protein 4.9 g/dl (6.3-8.2); eGFR > 60.00
[2025-01-26] MEDS: SUBLIMAZE IV (07:30)
[2025-01-26] MEDS: NSS 1000 IV (07:31)
[2025-01-26] MEDS: FOLVITE 50.2 MG IV (07:50)
[2025-01-26] MEDS: THIAMINE INJECTION 200 MG IV ×2 (07:50→19:31)
--- NOTE | 2025-01-26 08:25 | PTCARENOTE ---
Received pt intubated and sedated on propofol, fentanyl and precedex gtts. Pt. awakens to voice, follows commands, agitated, anxious and pulls up on restraints but calms down with reorientation. C-collar in place. SB-SR on tele. BP 100-110s/60s-70s.
+ pulses. No edema. #8 ETT @ 23cm, moved to the right. Fentanyl stopped for SBT. Tolerating A/C 14/450/+5/40%. Spo2 100%. Lungs diminished at bases. Hypoactive bowel sounds. Required straight cath overnight - monitor bladder scans. Turning q2.
--- NOTE | 2025-01-26 10:13 | PTCARENOTE ---
SBT complete and pt extubated to 4L NC without issue.
[2025-01-26 12:53] LABS: Lyme Antibody Screen, EIA Presump. Positive (Negative)
[2025-01-26] MEDS: CLARITIN 10 MG PO (13:21)
--- NOTE | 2025-01-26 13:49 | PTCARENOTE ---
C-collar removed after exam by Dr. Sarkar.
--- NOTE | 2025-01-26 14:01 | W.PN.INTV ---
Today's Communication / Plan
Recommendations
- Tolerated pressure support trial, successfully extubated to nasal cannula
- Continue thiamine and folic acid. Monitor for alcohol withdrawal
- If continues to do well, can be transferred out of ICU later today.
- [employer] service will sign off once transferred out of ICU
Assessment
-
Assessment: 54-year-old male tobacco smoker with a past medical history of opioid use disorder, anxiety, hypertension, C5/6 disc herniation and cervical spine DDD presented from home due to unresponsiveness. Patient last known normal at 5:30 PM on
01/24/2025. Patient found on the bathroom floor unresponsive. 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 Patient follows with an erosion control specialist associated with [employer] (Dr. Angel May). The patient went to work and came home around
5 PM. The mother was away for 15 minutes and patient went to the shower. She then found him on the bathroom floor after he did not respond to her. He was breathing shallowly. EMS called. Patient is prescribed Subutex half a tablet 3 times a
day, last filled on January 03. Also on Valium and Lexapro. There were no other missing medications. Mother was unaware that he had been drinking alcohol. He also was found with an unattached tick on his chest without a rash. Unclear if the tick
was engorged or not. In the ER he was afebrile to 98.1 �F, pulse rate 75, respiratory rate 21, BP 130/69 and saturating 100% on nonrebreather. Patient being intubated due to continued unresponsiveness. After patient intubated, he was later found
to be hypoxic with end-tidal CO2 not registering and he had to be reintubated. Pertinent labs show AST 170, ALT 109, negative troponin x 1, urinalysis with +1 leukocyte esterase, and UDS positive for fentanyl, buprenorphine, cocaine,
benzodiazepines and marijuana. Patient's alcohol level was 188. Urine culture was sent. CXR showed no evidence of pneumonia or vascular congestion, and CT head + cervical spine showed no acute intracranial abnormality, and no evidence of cervical
spine fracture. CTA head/neck showed widely patent bilateral carotid arterial system with no LVO or dissection bilaterally. Patient was started on propofol and Levophed and transferred to the ICU for further care. [employer] services consulted
for additional management/recommendations.
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
Assessment and plan:
#1. Acute respiratory failure with hypoxia, related to poly substance overdose. UDS positive for fentanyl, cocaine, THC and benzodiazepine. Reportedly is prescribed Valium Subutex and Lexapro.
-Patient awake and alert, was placed on pressure trial which she tolerated well
-Successfully extubated, 01/26, to nasal cannula and subsequently to room air. Chest x-ray reviewed, unremarkable.
#2. Polysubstance abuse with drug overdose of fentanyl
-Currently protecting airways well, tolerated extubation well.
-Wean Precedex as tolerated. Valium resumed.
#3. History of alcoholism, at risk for withdrawal.
-Continue thiamine and folic acid supplementation
-Currently awake, alert, not tremulous on my exam. Valium as needed resumed per hospitalist service.
Critical care statement: A total of 52 minutes of critical care time was provided for this patient today. This includes management of unstable vital signs, evaluation of the patient at bedside, reviewing the patient's pertinent medical records
including radiographs, microbiology, laboratory evaluations, and discussion with primary team, consultants, pharmacy, nutrition, physical therapy, case management, charge nurse, critical care nursing, and respiratory therapy.
Subjective Dataa
Subjective Data
Date of Service:
Date of Service: January 26, 2025
Subjective:
Patient was awake and alert and reexamined prior to extubation. He was placed on pressure support trial. He was reexamined after extubation again.
Review of Systems
Genitourinary: Other (All 14 systems reviewed and negative except as stated above in the history of present illness.)
Objective Data
Data Reviewed
Vital Signs / I&O / Oxygen:
Vital Signs
Temp Pulse Resp BP Pulse Ox
99.8 F 70 15 133/83 97
01/26/25 11:54 01/26/25 13:00 01/26/25 13:00 01/26/25 13:00 01/26/25 13:00
Intake and Output
01/25/25 01/26/25 01/27/25
06:59 06:59 06:59
Intake Total 1944.9 / 2114.9 3994.5 / 4150.2 825.4 / 825.4
Output Total 550 / 550 900 / 900
Balance 1394.9 / 1564.9 3094.5 / 3250.2 825.4 / 825.4
SaO2 [A/C] 100
SaO2 97
Nasal Cannula flow liters per 4
minute
Physical Exam
General: Comfortable
HEENT: Normocephalic and Other (Patient examined with c-collar in place, no point tenderness noted on the cervical spine or any surrounding area.)
Cardiovascular: S1-S2
Respiratory: Clear
GI: Soft and Non Distended
Neurology: Awake, Alert and Oriented
Skin: Warm
Labs/Micro/Reports
Lab Data
01/26/25 03:59
01/26/25 03:59
Microbiology
01/24/25 19:42 Urine Urine Culture - Final
NO GROWTH
[2025-01-26] MEDS: VALIUM 10 MG PO ×3 (14:05→21:08)
--- NOTE | 2025-01-26 14:22 | PTCARENOTE ---
Pt states he is feeling very anxious and is going to 'stroke out.' Requesting home med Valium. Meds brought in from home and verified by pharmacist. Valium given. Mother speaking to physician managing pt's addiction and requesting our provider
call him to discuss case, Dr. Angel May. Hospitalist and Food Processing Plant Manager notified. Pt repeatedly stating he is better and wants to leave, attempting to convince mother that he should leave. She repeatedly telling him he has to stay.
--- NOTE | 2025-01-26 14:29 | W.PN.HOSP.TC ---
Today's Communication/Plan
-
Monitor oxygen status and airway closely
Alcohol withdrawal protocol
Restart Subutex
Restart antianxiety medication
Monitor diet tolerance
Assessment / Plan
Assessment / Plan
# Unresponsiveness likely from Subutex overdose with concurrent alcohol/benzodiazepine/marijuana/amphetamine/cocaine use
# Acute hypoxic respiratory failure status post intubation and mechanical ventilation stimulation status post extubation
-Alcohol level of 188 on admission
-UDS positive for amphetamines, cocaine and marijuana in addition to expected buprenorphine and benzodiazepines
-Tylenol and salicylate level negative
-CTA head and neck unremarkable
-s/p extubation earlier on 01/26/25
-wean o2 as tolerated.
-Neurology consulted declined, as does not believe this is a brainstem CVA
-restarted diet. Continue IVF for now.
-wean off precedex gtt as tolerated
# History of alcoholism with risk of withdrawal
# Fentanyl abuse?
- Alcohol level was significantly elevated on admission
- Status post extubation start MSAS protocol.
# Unattached tick on the body
- No rash
-lyme testing-presump positive. Awaiting confirmatory testing
Essential hypertension
Anxiety/depression
- Patient normally on Lexapro, Valium
ADD
-Restart home meds
# Cervical disc disease
# Mild thrombocytopenia
- Monitor platelets for now
Full code
DVT prophylaxis�heparin
Anticipated Discharge: > 48 hours
Subjective/Interval History
-
Date of Service: January 26, 2025
Status post extubation earlier today
Seen on nasal cannula
Objective Data
-
Labs:
Laboratory Results
01/26/25
03:59
WBC 4.8
Hgb 10.5 L
Hct 31.1 L
Plt Count 119 L D
Sodium 137
Potassium 3.8
Chloride 111 H
Carbon Dioxide 20 L
BUN 9
Creatinine 0.6 L
Glucose 81
Calcium 7.8 L
Total Bilirubin 0.7
AST 52
ALT 56 H
Alkaline Phosphatase 43
Vital Signs:
Vital Signs
Temp Pulse Resp BP Pulse Ox
99.8 F 73 16 145/89 96
01/26/25 11:54 01/26/25 14:00 01/26/25 14:00 01/26/25 14:00 01/26/25 14:00
I&O
01/25/25 01/26/25 01/27/25
06:59 06:59 06:59
Intake Total 1944.9 / 2114.9 3994.5 / 4150.2 825.4 / 825.4
Output Total 550 / 550 900 / 900
Balance 1394.9 / 1564.9 3094.5 / 3250.2 825.4 / 825.4
Physical Exam
-
General: Well Developed, Well Nourished and Intubated
HEENT: Normocephalic, Atraumatic, Moist Mucous Membranes, Oxygen and Other (Cervical collar noted)
Respiratory: Wheezes
Cardiac: Regular Rhythm and S1/S2
GI: Soft, Nontender, Nondistended and Normal Bowel Sounds
Skin: Warm and Dry
Neuro: Awake and No Motor Deficits
Psych: Calm
Data Reviewed
-
Total Time Spent with Patient (in minutes): 55
[2025-01-26] MEDS: NSS IV (15:54)
[2025-01-26] MEDS: SUBUTEX 4 MG SL ×2 (15:55→21:04)
--- NOTE | 2025-01-26 17:16 | CM ---
Chart reviewed and patient was intubated and now extubated, patient was admitted with possible drug overdose, case management social worker met with patient and mother at bedside, patient has been living with his mother for 2 weeks, prior to that patient lived in a
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 May who prescribed patient Subutex, and has been weaning patient off other medications. Patient reports that he goes to [facility] even Sunday with his friends to a meeting.
Plan; Will follow with progress and contact [facility] to meet with patient.
--- NOTE | 2025-01-26 20:29 | PTCARENOTE ---
Received pt from previous RN. NSR/sinus miguelito on the monitor, b/l hand edema +1. Pt on RA O2 sat 95%, lungs diminished. Dinner tray at bedside, pt with poor appetite, ate a little bit of his soup. Pt assisted to the BR x1, voided, pt assisted with a
CHG bath, mouth care provided. Pt states he wants and needs to get out of here tomorrow, plan of care provided, emotional support provided. Call tran in reach. Safe environment maintained.
--- NOTE | 2025-01-26 23:12 | PTCARENOTE ---
Systems reviewed, no new changes in assessment. Pt talking about his overdose, discussed getting the help he needs, emotional support provided. Call tran in reach. Safe environment maintained.
[2025-01-27] VITALS (8 sets, daily range): BP systolic 136–151; BP diastolic 81–88; BMI 26.9
--- NOTE | 2025-01-27 03:40 | W.PN.UPDATE ---
Update Note
Progress Note Update
Discussed with Dr. Sarkar, public health staff nurse, patient stable at this time for downgrade to telemetry. Orders placed for transfer.
--- NOTE | 2025-01-27 04:40 | PTCARENOTE ---
Pt transferred to 3 via wheelchair.
[2025-01-27] MEDS: VALIUM 10 MG PO (04:43)
[2025-01-27] MEDS: LEXAPRO 20 MG PO (08:03)
[2025-01-27] MEDS: SUBUTEX 4 MG SL (08:03)
[2025-01-27] MEDS: CLARITIN 10 MG PO (08:03)
[2025-01-27] MEDS: HEPARIN 5000 UNITS SC (08:04)
[2025-01-27] MEDS: FOLVITE 1 MG PO (08:04)
[2025-01-27] MEDS: THIAMINE INJECTION 200 MG IV (08:06)
[2025-01-27 09:53] LABS: % Eosinophils 1.1 % (0-6); % Immature Granulocytes 0.2 % (0-0.5); % Lymphocytes 19.2 % (20.5-51.1); % Monocytes 9.3 % (1.7-9.3); % Neutrophils 70.2 % (42.2-75.2); Absolute Eosinophils 0.1 10^3/uL (0-0.7); Absolute Lymphocytes 1.1 10^3/uL (1.2-3.4); Absolute Monocytes 0.5 10^3/uL (0.1-0.6); Absolute Neutrophils 3.8 10^3/uL (1.4-6.5); Hematocrit 34.3 % (39.0-52.0); Hemoglobin 11.8 g/dL (13.0-18.0); Mean Corp Hgb Conc. 34.4 g/dL (33.0-37.0); Mean Corpuscular Hgb 32.9 pg (27.0-31.0); Mean Corpuscular Volume 95.5 fL (80.0-94.0); Mean Platelet Volume 10.6 fL (7.4-10.4); Nucleated Red Blood Cells % 0 % (-); Platelet Count 136 10^3/uL (130-400); Red Blood Cell Count 3.59 10^6/uL (4.70-6.10); Red Cell Dist. Width 11.4 % (11.5-14.5); White Blood Cell Count 5.5 10^3/uL (4.8-10.8)
[2025-01-27 10:17] LABS: ALT (SGPT) 46 U/L (0-50); AST (SGOT) 35 U/L (17-59); Albumin 2.9 g/dl (3.5-5.0); Alkaline Phosphatase 52 U/L (38-126); Blood Urea Nitrogen 5 mg/dl (9-20); Calcium 8.3 mg/dl (8.4-10.2); Carbon Dioxide 22 mmol/L (22-30); Chloride 108 mmol/L (98-107); Estimated Creatinine Clearance 123 ml/min; Glucose 81 mg/dl (70-99); Magnesium 1.9 mg/dl (1.6-2.3); Potassium 3.7 mmol/L (3.5-5.1); Sodium 139 mmol/L (135-145); Total Bilirubin 0.7 mg/dl (0.2-1.3); Total Protein 5.1 g/dl (6.3-8.2); eGFR > 60.00
--- NOTE | 2025-01-27 10:31 | PN.CDI ---
CDI
- -
CDI:
Physician Documentation Request
Admit Date: 01/24/25 21:30
Dear Doctor Jn,
Patient admitted for overdose.
01/24 Update Note: 'IV fluids and Levophed being givendue to hypotension from increased Propofol.'
01/24 Web Site Developer Consult: 'Patient was started on propofol and Levophed and transferred to the ICU for further care.'
Levophed Titration
01/24/25
21:18 01/25/25
01:28 01/25/25
09:00
CURRENT dosage in mcg/min 2 1 0
01/24/25
21:10 01/24/25
23:00 01/25/25
00:45
Blood pressure 79/57 76/55 80/50
Please clarify which of the following is the most likely etiology of the above symptoms and treatment rendered:
Drug induced shock
Shock, unknown type
Hypotension - indicate type/etiology, such as idiopathic, neurogenic or orthostatic, post-procedural, postoperative, due to hemodialysis, chronic, drug induced (indicate drug), etc.
Hypotension - unknown type/etiology
Other
Use of terms such as suspected, likely, concern for, or probable (associated with a specific diagnosis that is being evaluated, monitored, or treated as if it exists) are acceptable and can be coded in the inpatient setting, when documented at the
time of discharge.
Thank you,
Mary Larkin RN, BSN
CDI Specialist
Available via [place] text
Please use your independent medical judgment in providing your response.
--- NOTE | 2025-01-27 11:45 | W.PN.HOSP.TC ---
Addendum entered and electronically signed by Anuel Ragsdale MD 01/27/25 14:36:
Shock likely secondary to medication and drug abuse and alcohol abuse
Original Note:
Today's Communication/Plan
-
Await repeat PT eval
Monitor for diet tolerance
Plan for tentative DC later today
Assessment / Plan
Assessment / Plan
# Unresponsiveness likely from Subutex overdose with concurrent alcohol/benzodiazepine/marijuana/amphetamine/cocaine use and heroin usage
# Acute hypoxic respiratory failure status post intubation and mechanical ventilation stimulation status post extubation
-Alcohol level of 188 on admission
-UDS positive for amphetamines, cocaine and marijuana in addition to expected buprenorphine and benzodiazepines
-Tylenol and salicylate level negative
-CTA head and neck unremarkable
-s/p extubation earlier on 01/26/25
-wean o2 as tolerated. Stable on room air.
-Neurology consulted declined, as does not believe this is a brainstem CVA
-restarted diet and off IVF.
-wean off precedex gtt .
- DC fluids. Tolerating diet. Patient stated he drank few bottles of beer and did heroin prior to arrival to the hospital. Possibility of heroin laced with other contaminants like xylazine + medetomidine as patient was hypotensive and mildly
bradycardic at admission.
- Blood pressure and heart rate stabilized and normal.
# History of alcoholism with risk of withdrawal
# Fentanyl abuse?
- Alcohol level was significantly elevated on admission
- Status post extubation start MSAS protocol. Not at risk of withdrawal currently. Low MSAS score.
# Unattached tick on the body
- No rash
-lyme testing-presump positive. Awaiting confirmatory testing
- Of note patient has been presumed positive in the past going back 7 years and Western blot has been negative.
- Patient does not want to stay in the hospital for final results. Recommend to follow-up with primary care doctor.
Essential hypertension
Anxiety/depression
- Patient normally on Lexapro, Valium
ADD
-Restart home meds
# Cervical disc disease
# Mild thrombocytopenia
- Monitor platelets for now. Resolved.
Full code
DVT prophylaxis�heparin
Patient states he does not want to go to inpatient detox rehab. Offered help with assistance of case management BKAs which patient does not want. States as outpatient he goes to [facility] and would like to continue to do that. Recommended
and counseled tobacco, alcohol cessation and drug abuse while on multiple medication which could have possibility of cross-reactivity leading to complications and . Offered counseling and recommendation to the best of ability. Patient
verbalized understanding. Await PT eval.
More than 30 minutes spent in discharge including
Final examination of the patient
Summarizing hospital stay
Instructions for continuing care to all relevant caregivers
Preparation of discharge records, prescriptions, and referral forms
Total time spent (in minutes): 52
Anticipated Discharge: Today
Subjective/Interval History
-
Date of Service: January 27, 2025
Tx out of ICU
VSS
Tolerating diet
No chest pain no shortness of breath or tremors or nausea or vomiting
Objective Data
-
Labs:
Laboratory Results
01/27/25
08:26
WBC 5.5
Hgb 11.8 L
Hct 34.3 L
Plt Count 136
Sodium 139
Potassium 3.7
Chloride 108 H
Carbon Dioxide 22
BUN 5 L
Creatinine 0.7
Glucose 81
Calcium 8.3 L
Total Bilirubin 0.7
AST 35
ALT 46
Alkaline Phosphatase 52
Vital Signs:
Vital Signs
Temp Pulse Resp BP Pulse Ox
98.1 F 71 16 136/86 95
01/27/25 07:15 01/27/25 07:15 01/27/25 07:15 01/27/25 07:15 01/27/25 08:30
I&O
01/26/25 01/27/25 01/28/25
06:59 06:59 06:59
Intake Total 3994.5 / 4150.2 1235.4 / 1235.4
Output Total 900 / 900 375 / 375
Balance 3094.5 / 3250.2 860.4 / 860.4
Physical Exam
-
General: Well Developed and Well Nourished
HEENT: Normocephalic, Atraumatic and Moist Mucous Membranes
Respiratory: Clear to Auscultation
Cardiac: Regular Rhythm and S1/S2
GI: Soft, Nontender, Nondistended and Normal Bowel Sounds
Skin: Warm and Dry
Neuro: Awake, Alert, Oriented, AO x 3 and No Motor Deficits
Psych: Calm
--- NOTE | 2025-01-27 13:52 | W.DCSUMMARY ---
Discharge Summary
Discharge Data
Date of Admission: 01/24/25
Date of Discharge: 01/27/25
-
Pending Results: Yes
Additional Pending Results:
lyme western blot serologies w/ PCP
Hospital Course
54-year-old male past medical history of alcohol abuse, opioid abuse, hypertension, anxiety, depression, ADD, cervical disc disease who is presenting from home with episode of unresponsiveness. Patient was intubated for airway protection. Patient
was monitored in the ICU. Urine drug screen was obtained which showed patient was positive for amphetamines, cocaine, marijuana, benzodiazepine. Alcohol level was also elevated [address] admission. Patient underwent CT of the head and neck which was
unremarkable. Tylenol salicylate level was found to be negative. Patient was able to be eventually extubated. Precedex drip was weaned off. Patient was started on alcohol withdrawal protocol. Patient was able to tolerate diet. Patient did
state that prior to coming to the hospital he did heroin which could have been laced with other contaminated products. Patient was restarted on his outpatient medication regimen. Patient was counseled multiple times about complete drug and alcohol
abuse cessation. Patient was not interested in going to rehab. Patient vital signs were stable. Patient was stable on room air. Patient was tolerating diet. Patient stable follow-up Western blot Lyme studies with primary doctor he does not want
to wait for the results. Of note patient had Lyme presumed positive multiple times in the past and Western blot was negative. Patient did not have any rash on the body. Patient was eval by physical therapy. Patient was recommended follow-up with
campaign management specialist for further medication adjustment as needed. Patient be discharged home to his family.
Discharge Plan
-
Patient Disposition: Home (Routine Discharge)
Discharge Diagnosis/Procedures: Unresponsiveness likely multifactorial due to drugs and alcohol abuse
Acute hypoxic respiratory failure
Condition: Fair
Diet: Regular
Activity: As tolerated
Driving Restrictions: As prior to admission
Activity Restrictions/Additional Instructions:
Follow-up with your campaign management specialist Dr. Escobar
Instructions: Alcohol use disorder - Discharge instructions, Substance use disorder
Referrals:
UNKNOWN - PT DOES,NOT KNOW [Family Provider] -
Prescriptions:
Continued
dextroamphetamine-amphetamine 30 mg Capsule,Extended Release 24hr
30 mg PO DAILY
escitalopram oxalate 20 mg Tablet
20 mg PO DAILY
buprenorphine HCl 8 mg Tablet, Sublingual
4 mg SUBLINGUAL TID
Rx Instructions:
PLACE HALF A TABLET OF 8MG UNDER THE TONGUE THREE TIMES A DAY
lisinopril 30 mg Tablet
30 mg PO DAILY
dextroamphetamine-amphetamine 30 mg tablet
30 mg PO BID
Changed
diazepam 10 mg tablet
10 mg PO BID PRN (Reason: Mental Health/Anxiety) Qty: 0 0RF
Discharge Orders:
Discharge Patient (As Directed); Ordered 01/27/25
Ordered By: Anuel Ragsdale
Discharge Date and Time
Discharge Date/Time: 01/27/25 14:33
Print Language: TURKMEN
--- NOTE | 2025-01-27 13:59 | CM ---
Pt transferred to [facility] s/p substance abuse overdose. Cleared for discharge. Resources offered, but refused. Pt plans to go to an AA meeting with friends; declined [facility] visit.
Plan: Discharge to home with mother. Resources offered and declined.
== END 2025-01-27 14:33 | disposition home or self-care (01) | DRG 91 ==
LOC: 3 WEST ACU 21:30
PROVIDERS: Internal Medicine; Nurse Practitioner Family; ADMITTING PHYSICIAN Hospitalist; ATTENDING PHYSICIAN Hospitalist; CONSULT PHYSICIAN Internal Medicine Critical Care Medicine; EMERGENCY PHYSICIAN Emergency Medicine
PROC: 0BH17EZ Insertion of Endotracheal Airway into Trachea, Via Natural or Artificial Opening (ICD-10-PCS; 2025-01-24)
PROC: 5A1945Z Respiratory Ventilation, 24-96 Consecutive Hours (ICD-10-PCS; 2025-01-24)
DX: G93.1 Anoxic brain damage, not elsewhere classified (principal); J96.01 Acute respiratory failure with hypoxia; R57.8 Other shock; T40.491A Poisoning by other synthetic narcotics, accidental (unintentional), initial encounter; T40.5X1A Poisoning by cocaine, accidental (unintentional), initial encounter; F12.10 Cannabis abuse, uncomplicated; F11.10 Opioid abuse, uncomplicated; Y90.6 Blood alcohol level of 120-199 mg/100 ml; F10.129 Alcohol abuse with intoxication, unspecified; I10 Essential (primary) hypertension; F32.A Depression, unspecified; F41.9 Anxiety disorder, unspecified
CPT/HCPCS: 31500; 70450; 70496; 70498; 71045; 72125; 80053; 80143; 80179; 80306; 80307; 81003; 81015; 82077; 82248; 82805; 82962; 83605; 83735; 84100; 84478; 84484; 85025; 85610; 85730; 86617; 86618; 87086; 93005; 94002; 94003; 96365; 96366; 96367; 96375; 97116; 97162; 99291; Q9967

== ENCOUNTER 2025-02-23 12:47 | Emergency (ER) | payer MEDICAID, SELFPAY ==
[2025-02-23 12:50] VITALS: BP 126/93
[2025-02-23 13:17] VITALS: BMI 24.6
--- NOTE | 2025-02-23 13:38 | EDRN ---
IAparna ROGEL in room w/ pt at this time.
--- NOTE | 2025-02-23 13:57 | ED.SKININJ ---
HPI-Injury
General
Chief Complaint: Skin Problem
Source: patient
Exam Limitations: none
Time Seen by Provider: 02/23/25 13:35
Nursing documentation reviewed up to this point in time: agreed with
History of Present Illness-Injury
Initial Injury comments:
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 He states he significantly picked at the area and got most of the tick out but he thinks the
head is still embedded. He states he still has achiness in his knees, he has had Lyme disease before and he feels like he still has the symptoms and is requesting another 6 days of doxycycline be sent to his pharmacy. He denies fever or chills.
Hx. alcohol abuse, opioid abuse, hypertension, anxiety, depression, ADD, cervical disc disease, recent admission 01/24-01/26 for overdose
Past History
Past History
ED Past Medical History: HTN and Other (History of opioid use)
Social History
Alcohol: Chronic alcoholic
Drug: Narcotics
Personal: Single
Living: with family
Employment: Not employed
Review of Systems
Review of Systems
Allergies reviewed?: Yes
All Other Systems: ROS reviewed and negative except as documented in HPI and ROS
Constitutional: Denies fever
Musculoskeletal: Reports joint pain (knees); Denies joint swelling
Skin: Reports other (right upper back wound)
Neurological: Denies headache
Phy Exam
Physical Exam
Physical Exam:
GENERAL: No acute distress. A&Ox3.
CONSTITUTIONAL: Afebrile.
RESPIRATORY: Regular respirations, nonlabored, lungs clear.
CARDIOVASCULAR: Regular rate and rhythm, no murmurs, no rubs.
MUSCULOSKELETAL: No swelling of the knees, nontender. Full range of motion. Moves with ease. Well perfused.
SKIN: Warm, dry, pink. 1 x 1 cm round erythematous area with raised black head. No cellulitis, rather, local irritation
PSYCH: Normal mood and affect. Well kept, interactive and appropriate
NEUROLOGIC: Awake, alert and oriented. No focal neurological deficits
Course
Vital Signs
Initial and Last Documented VS:
Initial Vital Signs
Temp Pulse Resp BP Pulse Ox
98 F 81 16 126/93 95
02/23/25 12:50 02/23/25 12:50 02/23/25 12:50 02/23/25 12:50 02/23/25 12:50
Last Documented Vital Signs
Temp Pulse Resp BP Pulse Ox
98 F 81 16 126/93 95
02/23/25 12:50 02/23/25 12:50 02/23/25 12:50 02/23/25 12:50 02/23/25 12:50
MDM/Problems Addressed
Differential Diagnosis Includes:
embedded tick head, sebaceous cyst
MDM/Problems Addressed:
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 He states he significantly picked at the area and got most of the tick out but he thinks the
head is still embedded. He states he still has achiness in his knees, he has had Lyme disease before and he feels like he still has the symptoms and is requesting another 6 days of doxycycline be sent to his pharmacy. He denies fever or chills.
Afebrile, NAD
Procedure:
After cleansing area with alcohol wipe, injecting local anesthesia, excised central area of eschar, thick cheesy material expressed. Area cleansed with alcohol wipe, antibiotic ointment and Band-Aid applied.
There is a 1 cm round area with a black elevated center on his right upper back.
Exam consistent with locally inflamed sebaceous cyst of upper right back. Unsure if there was a tiny tick head in the black area.
At pt request and ongoing knee pain he states he's had with Lyme's disease in past, Rx for Doxycycline 6 days sent to his pharmacy
*Critical Care Note
Total Time (30-74mins, 75-104mins- exclusive of procedures): Not Applicable
ED Attending Note
-
Portions of this chart may have been created with voice recognition software.� Occasional wrong word or��sound alike� substitutions may have occurred due to the inherent limitations of voice recognition software.
Discharge Plan
Departure
Patient Disposition: Home (Routine Discharge)
Date of Disposition: 02/23/25
Time of Disposition: 13:53
Patient with high blood pressure during this ER visit?: No
Condition: Good
Discharge Problem:
Tick bite of left upper back excluding scapular region, Sebaceous cyst
Instructions: Epidermal Cyst, Wound Care (DC)
Prescriptions:
New
doxycycline hyclate 100 mg capsule
100 mg PO BID Qty: 12 0RF
No Action
dextroamphetamine-amphetamine 30 mg Capsule,Extended Release 24hr
30 mg PO DAILY
escitalopram oxalate 20 mg Tablet
20 mg PO DAILY
buprenorphine HCl 8 mg Tablet, Sublingual
4 mg SUBLINGUAL TID
Rx Instructions:
PLACE HALF A TABLET OF 8MG UNDER THE TONGUE THREE TIMES A DAY
lisinopril 30 mg Tablet
30 mg PO DAILY
dextroamphetamine-amphetamine 30 mg tablet
30 mg PO BID
diazepam 10 mg tablet
10 mg PO BID PRN (Reason: Mental Health/Anxiety) Qty: 0 0RF
Referrals:
Oswaldo Gomes MD [Family Provider, Family Practice] - As needed
Activity Restrictions/Additional Instructions:
As we discussed, you had a small cyst that was locally infected
I sent a prescription to your pharmacy for 6 more days of the doxycycline
Interventions
Interventions:
*Risk Screen - Suicide Last Done: 02/23/25 12:52
*General Assessment Last Done: 02/23/25 13:17
*Neglect/Abuse Screening Last Done: 02/23/25 12:52
*ED- Fall Risk Assessment Last Done: 02/23/25 13:17
*ED COVID-19 Vaccine History Last Done: 02/23/25 13:17
*Nursing Disposition Last Done: 02/23/25 14:30
ED-Skin Assessment Last Done: 02/23/25 13:20
Discharge Date and Time
Discharge Date/Time: 02/23/25 14:30
Print Language: GHANAIAN
== END 2025-02-23 14:30 | disposition home or self-care (01) ==
LOC: EMR 12:47
PROVIDERS: EMERGENCY PHYSICIAN Emergency Medicine; FAMILY PHYSICIAN Family Medicine
DX: L72.3 Sebaceous cyst (principal); M25.562 Pain in left knee; M25.561 Pain in right knee; W57.XXXA Bitten or stung by nonvenomous insect and other nonvenomous arthropods, initial encounter; F10.20 Alcohol dependence, uncomplicated; I10 Essential (primary) hypertension; M50.90 Cervical disc disorder, unspecified, unspecified cervical region; F11.11 Opioid abuse, in remission; F32.A Depression, unspecified; F41.9 Anxiety disorder, unspecified; F90.9 Attention-deficit hyperactivity disorder, unspecified type; Z87.898 Personal history of other specified conditions
CPT/HCPCS: 11402; 99283

== ENCOUNTER → 2025-04-27 16:07 | Outpatient (REF) | payer MEDICAID, SELFPAY | LOC: RAD 16:07 | PROVIDERS: ATTENDING PHYSICIAN Internal Medicine; FAMILY PHYSICIAN Internal Medicine | DX: Z87.39 Personal history of other diseases of the musculoskeletal system and connective tissue (principal); M25.511 Pain in right shoulder | CPT/HCPCS: 73030 ==

== ENCOUNTER → 2025-05-26 11:17 | Outpatient (REF) | payer OTHER, SELFPAY | LOC: HWRAD 11:17 | PROVIDERS: ATTENDING PHYSICIAN Orthopaedic Surgery; FAMILY PHYSICIAN Internal Medicine | DX: S43.004A Unspecified dislocation of right shoulder joint, initial encounter (principal) | CPT/HCPCS: 73200 ==